=== PATIENT | female | born 1990 | race Caucasian/White ===

== ENCOUNTER → 2016-08-24 | Outpatient (CLI) | payer OTHER ==
[~2016-08-24] MED LIST: BUSP10TA PO; HYDR-3533 PO
[2016-08-24 08:12] LABS: AUTOMATED NEUTROPHIL # 9.3 TH/MM3 (1.8-7.7); BASOPHIL % 0.3 % (0.0-2.0); EOSINOPHIL # 0.1 TH/MM3 (0-0.4); EOSINOPHIL % 0.7 % (0.0-4.0); HEMATOCRIT 40.5 % (35.0-46.0); HEMO FLAGS DIFF FINAL; LYMPH % 16.3 % (9.0-44.0); MEAN CELL VOLUME 88.9 FL (80.0-100.0); MEAN CORPUSCULAR HEMOGLOBIN 29.1 PG (27.0-34.0); MEAN CORPUSCULAR HGB CONC 32.7 % (32.0-36.0); MONO % 5.6 % (0.0-8.0); NEUT % 77.1 % (16.0-70.0); PLATELET COUNT 310 TH/MM3 (150-450); RED BLOOD COUNT 4.56 MIL/MM3 (4.00-5.30); RED CELL DISTRIBUTION WIDTH 12.5 % (11.6-17.2); WHITE BLOOD COUNT 12.1 TH/MM3 (4.0-11.0)
[2016-08-24 08:40] LABS: ANION GAP 11 MEQ/L (5-15); AST (GOT) 8 U/L (15-37); BICARBONATE 25.4 MEQ/L (21.0-32.0); BLOOD UREA NITROGEN 11 MG/DL (7-18); CHLORIDE 103 MEQ/L (98-107); GLOMERULAR FILTRATION RATE 85 ML/MIN (>89); GLUCOSE,FASTING 86 MG/DL (74-99); POTASSIUM 3.7 MEQ/L (3.5-5.1); SODIUM (NA) 139 MEQ/L (136-145)
[2016-08-24 08:41] LABS: ALT (GPT) 19 U/L (10-53)
[2016-08-24 08:44] LABS: ALKALINE PHOSPHATASE 42 U/L (45-117); HDL CHOLESTEROL 64.5 MG/DL (40.0-60.0); LDL CHOLESTEROL 56 MG/DL (0-99); TOTAL BILIRUBIN ADULT 0.6 MG/DL (0.2-1.0)
== END ==
LOC: CLAB 07:48
PROVIDERS: ATTEND Family Medicine
DX: F90.0 Attention-deficit hyperactivity disorder, predominantly inattentive type (principal); Z68.34 Body mass index [BMI] 34.0-34.9, adult
CPT/HCPCS: 36415; 80053; 80061; 85025

== ENCOUNTER 2016-10-09 15:52 | Emergency (ER) | payer OTHER ==
[~2016-10-09] VITALS: Ht 152.4 cm; Wt 87.9 kg
[2016-10-09 15:54] VITALS: BP 161/87; PULSE 80; RESP 18; TEMP 98.4; O2SAT 98
--- NOTE | 2016-10-09 16:05 | PD ---
HPI Chief Complaint: Complaint Time Seen by Provider: 15:58 Travel History International Travel<30 days: No Contact w/Intl Traveler<30days: No Traveled to known affect area: No History of Present Illness HPI The patient is a 25-year-old female who presents to the emergency department for 2 day history of urgency, frequency, and dysuria. Patient has a history of urinary tract infections. The patient has been on Cipro in the past with nausea, but has taken Bactrim without difficulty. Her last menstrual cycle was 2 weeks ago, she is currently on control, denies any vaginal discharge or bleeding. She denies any fever, chills, or sweats. She denies any nausea, vomiting, abdominal pain, or back pain. Symptoms are mild, no current alleviating or exacerbating factors. PFSH Past Medical History Cancer: No Cardiovascular Problems: No Diabetes: No Diminished Hearing: No Endocrine: No Genitourinary: Yes (BLADDER REIMPLANTATION, FREQUENT UTI) Hepatitis: No Hiatal Hernia: No Immune Disorder: No Musculoskeletal: Yes (RIGHT FX HAND X2) Neurologic: No Psychiatric: No Reproductive: No Respiratory: No Thyroid Disease: No ?: Not LMP: 09/2016 Past Surgical History Abdominal Surgery: No AICD: No Cardiac Surgery: No Ear Surgery: No Eye Surgery: No Genitourinary Surgery: Yes (BLADDER SX) Gynecologic Surgery: No Joint Replacement: No Oral Surgery: No Pacemaker: No Thoracic Surgery: No Other Surgery: Yes (KIDNEY SURGERY-HAS 3) Social History Alcohol Use: Yes (SOCIALLY) Tobacco Use: No Substance Use: No Allergies-Medications (Allergen,Severity, Reaction): Coded Allergies: Penicillin (Verified Allergy, Intermediate, HIVES, 10/09/16) Uncoded Allergies: PENCILLIN (Adverse Reaction, Intermediate, HIVES, 04/29/15) HIVES Reported Meds & Prescriptions Reported Meds & Active Scripts Active Reported [ Control] Buspirone (Buspirone HCl) 10 Mg Tab 10 Mg PO DAILY Review of Systems Except as stated in HPI: all other systems reviewed are Neg General / Constitutional: No: Fever Gastrointestinal: No: Nausea, Vomiting, Abdominal Pain Genitourinary: Positive: Urgency, Frequency, Dysuria, No: Discharge, Vaginal Bleeding Physical Exam Narrative GENERAL: Awake, alert, pleasant 25 year-old female who appears her stated age and is in no acute respiratory distress. SKIN: Focused skin assessment warm/dry. HEAD: Atraumatic. Normocephalic. EYES: No injection or drainage. GASTROINTESTINAL: Abdomen soft, non-tender, nondistended. No suprapubic tenderness. Back: No CVA tenderness. MUSCULOSKELETAL: No obvious deformities. No clubbing. No cyanosis. No edema. NEUROLOGICAL: Awake and alert. No obvious cranial nerve deficits. Motor grossly within normal limits. Normal speech. PSYCHIATRIC: Appropriate mood and affect; insight and judgment normal. Data Data Last Documented VS Vital Signs Date Time Temp Pulse Resp B/P Pulse Ox O2 Delivery O2 Flow Rate FiO2 10/09/16 15:54 98.4 80 18 161/87 98 Orders Urinalysis - C+S If Indicated (10/09/16 15:54) Ed Urine Pregnancytest Poc (10/09/16 16:02) Urine Culture (10/09/16 16:00) Labs Laboratory Tests Test 10/09/16 16:00 Urine Collection Type CLEAN CATCH Urine Color ORANGE Urine Turbidity SLIGHT Urine pH 5.5 Urine Specific [place] 1.025 Urine Protein TRACE mg/dL Urine Glucose (UA) 100 mg/dL Urine Ketones TRACE mg/dL Urine Occult Blood NEG Urine Nitrite POS Urine Bilirubin NEG Urine Leukocyte Esterase TRACE Urine WBC 25-49 /hpf Urine Squamous Epithelial 6-8 /hpf Cells Microscopic Urinalysis Comment CULTURE INDICATED Urine Collection Time 16:00 [facility] Medical Decision Making Medical Screen Exam Complete: Yes Emergency Medical Condition: Yes Medical Record Reviewed: Yes Interpretation(s) Laboratory Tests Test 10/09/16 16:00 Urine Collection Type CLEAN CATCH Urine Color ORANGE Urine Turbidity SLIGHT Urine pH 5.5 Urine Specific [place] 1.025 Urine Protein TRACE mg/dL Urine Glucose (UA) 100 mg/dL Urine Ketones TRACE mg/dL Urine Occult Blood NEG Urine Nitrite POS Urine Bilirubin NEG Urine Leukocyte Esterase TRACE Urine WBC 25-49 /hpf Urine Squamous Epithelial 6-8 /hpf Cells Microscopic Urinalysis Comment CULTURE INDICATED Urine Collection Time 16:00 Differential Diagnosis Differential diagnosis includes UTI, cystitis, nephrolithiasis, cervicitis, PID , vaginitis. Narrative Course Bedside UA test was obtained, was negative. UA was sent to lab. UA is positive for UTI. The patient will be placed on Pyridium and Bactrim. She is advised to take her contacts out while taking the Pyridium. She is also advised to follow-up with a primary physician. Return if symptoms worsen or progress. Diagnosis Primary Impression: UTI (urinary tract infection) Qualified Code: N30.00 - Acute cystitis without hematuria Patient Instructions: General Instructions Additional Instructions: Medications as directed. Do not wear contacts while taking Pyridium. Follow- up with her primary physician. Return if symptoms worsen or progress. Med/Other Pt SpecificInfo: Prescription(s) given Scripts Phenazopyridine (Pyridium)100 Mg [id number] Mg PO Q8H PRN (DYSURIA) 2 Days Ref 0 Prov:Chano Baez MD 10/09/16 Sulfamethoxazole-Trimethoprim (Bactrim DS)800-160 Mg Tab1 Tab PO BID #14 TAB Ref 0 Prov:Chano Baez MD 10/09/16 Disposition: 01 DISCHARGE HOME Condition: Stable Chano Baez MD Oct 09, 2016 16:05
[2016-10-09] MEDS ORDERED: BIRTH CONTROL (16:06)
[2016-10-09 16:17] LABS: BLOOD, URINE NEG (NEG); GLUCOSE,URINE 100 mg/dL (NEG); KETONE, URINE TRACE mg/dL (NEG); PH, URINE 5.5 (5.0-8.5)
[2016-10-09 16:24] LABS: METHOD OF COLLECTION CLEAN CATCH; NITRITE,URINE POS (NEG); URINE COLOR ORANGE (YELLW/STRAW)
[2016-10-09 16:26] LABS: COMMENT (UR) CULTURE INDICATED; CULTURE IF INDICATED CULTURE INDICATED
[2016-10-09] MEDS ORDERED: BACT800T5 PO (16:39)
[2016-10-09] MEDS ORDERED: PHEN0.4T PO (16:39)
== END 2016-10-09 16:48 | disposition home or self-care (01) ==
LOC: PHEFT 15:52
DX: N30.00 Acute cystitis without hematuria (principal); B96.89 Other specified bacterial agents as the cause of diseases classified elsewhere
CPT/HCPCS: 81001; 84703; 87086; 99284

== ENCOUNTER 2016-12-05 08:20 | Emergency (ER) | payer OTHER ==
[~2016-12-05 08:20] MED LIST changes: +BACT800T5 PO; +BIRTH CONTROL; -HYDR-3533 PO; +PHEN0.4T PO
[2016-12-05 08:22] VITALS: BP 139/96; PULSE 81; RESP 15; TEMP 98.2; O2SAT 98
--- NOTE | 2016-12-05 08:44 | PD ---
HPI Chief Complaint: Skin Problem Time Seen by Provider: 08:37 Travel History International Travel<30 days: No Contact w/Intl Traveler<30days: No Traveled to known affect area: No History of Present Illness HPI 26-year-old female presents to emergency department with erythematous raised yrn hive-like rash on her extremities and trunk as well as her right eyelid and left forehead. Patient states she recently traveled to [place], but denies any specific exposures although she could've been bitten by some sort of insect. She denies fever, chills, headache, myalgias, or other symptoms. She states the areas are very itchy and seem to be popping up more in the last 24 hours. There are no open wounds. There is no pain. She has no difficulty swallowing or wheezing or shortness of breath. She is allergic to penicillin. PFSH Past Medical History Cancer: No Cardiovascular Problems: No Diabetes: No Diminished Hearing: No Endocrine: No Genitourinary: Yes (BLADDER REIMPLANTATION, FREQUENT UTI) Hepatitis: No Hiatal Hernia: No Immune Disorder: No Musculoskeletal: Yes (RIGHT FX HAND X2) Neurologic: No Psychiatric: No Reproductive: No Respiratory: No Thyroid Disease: No Past Surgical History Abdominal Surgery: No AICD: No Cardiac Surgery: No Ear Surgery: No Eye Surgery: No Genitourinary Surgery: Yes (BLADDER SX) Gynecologic Surgery: No Joint Replacement: No Oral Surgery: No Pacemaker: No Thoracic Surgery: No Other Surgery: Yes (KIDNEY SURGERY-HAS 3) Social History Alcohol Use: Yes (SOCIALLY) Tobacco Use: No Substance Use: No Allergies-Medications (Allergen,Severity, Reaction): Coded Allergies: penicillin G (Unverified Allergy, Intermediate, HIVES, 12/05/16) Reported Meds & Prescriptions Reported Meds & Active Scripts Active Prednisone (48) 10 mg tab Dose Pack (Prednisone) 10 Mg Dspk 10 Mg PO DIRECTED Reported [ Control] Review of Systems Except as stated in HPI: all other systems reviewed are Neg General / Constitutional: No: Fever Eyes: No: Visual changes HENT: No: Headaches Cardiovascular: No: Chest Pain or Discomfort Respiratory: No: Shortness of Breath Gastrointestinal: No: Abdominal Pain Genitourinary: No: Dysuria Musculoskeletal: No: Pain Skin: Positive Rash, Positive Itching, Positive Hives Neurologic: No: Weakness Psychiatric: No: Depression Endocrine: No: Polydipsia Hematologic/Lymphatic: No: Easy Bruising Physical Exam Narrative GENERAL: Patient appears no distress. SKIN: Warm and dry. Patient has multiple irregular shaped erythematous hive- like lesions to the trunk, fingers and hands, forearms, right face including the upper and lower eyelid and forehead, as well as the left cheek and forehead. HEAD: Atraumatic. Normocephalic. EYES: Pupils equal and round. No scleral icterus. No injection or drainage. ENT: No nasal bleeding or discharge. Mucous membranes pink and moist. Pharynx is clear. Airway is patent. Tongue is normal. Uvula is midline. It is not swollen. TMs are clear bilaterally. NECK: Trachea midline. Supple nontender without lymphadenopathy. CARDIOVASCULAR: Regular rate and rhythm. RESPIRATORY: No accessory muscle use. Clear to auscultation. Breath sounds equal bilaterally. GASTROINTESTINAL: Abdomen soft, non-tender, nondistended. Hepatic and splenic margins not palpable. MUSCULOSKELETAL: Extremities without clubbing, cyanosis, or edema. No obvious deformities. NEUROLOGICAL: Awake and alert. No obvious cranial nerve deficits. Motor grossly within normal limits. Five out of 5 muscle strength in the arms and legs. Normal speech. PSYCHIATRIC: Appropriate mood and affect; insight and judgment normal. Data Data Last Documented VS Vital Signs Date Time Temp Pulse Resp B/P (MAP) Pulse Ox O2 Delivery O2 Flow Rate FiO2 12/05/16 09:29 12/05/16 08:22 98.2 81 15 98 Orders Orders Prednisone (Deltasone) (12/05/16 09:15) [facility] Medical Decision Making Medical Screen Exam Complete: Yes Emergency Medical Condition: Yes Differential Diagnosis Allergic reaction. Insect bite. Possible [place] spotted fever. Hives. Narrative Course The patient is medically stable at time of exam. Patient is discussed with and examined with Dr. Galdamez. Patient will be treated for generalized hives/allergic reaction. I do not feel the patient has [place] spotted fever and antibiotics are not warranted. Patient is given prednisone 40 mg by mouth now. Patient is continued on a prednisone Dosepak as directed. Patient take Benadryl and use topical Benadryl as discussed as needed. Patient follow with her primary care physician or return to emergency department if symptoms worsen. Diagnosis Primary Impression: Urticaria Referrals: Primary Care Physician Patient Instructions: General Instructions, Urticaria (ED) Additional Instructions: Patient will be treated for generalized hives/allergic reaction. I do not feel the patient has [place] spotted fever and antibiotics are not warranted. Patient is given prednisone 40 mg by mouth now. Patient is continued on a prednisone Dosepak as directed. Patient take Benadryl and use topical Benadryl as discussed as needed. Patient follow with her primary care physician or return to emergency department if symptoms worsen. Med/Other Pt SpecificInfo: Prescription(s) given Scripts Prednisone (48) 10 mg tab Dose Pack (Prednisone (48) 10 mg tab Dose Pack) 10 Mg Dspk 10 MG PO DIRECTED for Inflammation, #1 DSPK 0 Refills Prov: Priscila Boone MD 12/05/16 Disposition: 01 DISCHARGE HOME Condition: Stable Michael Alves Dec 05, 2016 08:44
[2016-12-05] MEDS ORDERED: PRED10PA2 PO (09:15)
[2016-12-05] MEDS ORDERED: predniSONE 20 MG TAB PO ONE (09:15)
== END 2016-12-05 09:58 | disposition home or self-care (01) ==
LOC: NEPK 08:20
DX: L50.9 Urticaria, unspecified (principal)
CPT/HCPCS: 99283; J7512